=== PATIENT | female | born 1965 | race Caucasian/White ===

== ENCOUNTER 2019-01-26 08:02 | Inpatient (IN) ==
[2019-01-26] MEDS ORDERED: Acetaminophen 325 MG Tablet PO PRN (13:57)
[2019-01-26] MEDS: Enoxaparin Inj 30 MG/0.3 ML Syringe SQ SCH (14:31)
--- NOTE | 2019-01-26 16:52 | ECG ---
Date Performed: 01/26/2019 Time Performed: 14:21:12 PTAGE: 53 years EKG: Sinus rhythm WITH SINUS ARRHYTHMIA NORMAL ECG NO PREVIOUS TRACING DOCTOR: Sherwin Bartlett Interpretating Date/Time 01/26/2019 16:50:39
--- NOTE | 2019-01-26 17:56 | P.HP ---
History of Present Illness Service: CP hospitalist Primary Care Physician: UNKNOWN Chief Complaint: shortness of breath History of Present Illness: his is a 53-year-old female with a history of COPD and tobacco abuse who presents for dyspnea. She states that 5 days ago, she developed productive cough, nasal congestion. She has been taking Mucinex. She states that today, she developed increased shortness of breath. She states that her anterior chest feels tight with difficulty breathing. She denies lower extremity edema, calf pain, immobility, history of DVT or PE. She does continue to smoke cigarettes. She denies any current fever. No rash, headache, neck pain or stiffness. The tightness in the anterior aspect of her chest does not radiate to arm, neck, jaw. No associated diaphoresis or palpitations. Symptoms are moderate in severity. No alleviating factors. In er had chest xray showed rt apical pneumothorax chest tube placed. and transferred to [facility] – [place]. - Diagnosis (1) Pneumothorax on left (2) COPD (chronic obstructive pulmonary disease) Inpatient Certification: I certify that the inpatient services were ordered in accordance with Medicare regulations governing the order. This includes certification that hospital inpatient services are reasonable and necessary and in the case of services not specified as inpatient-only under 42 CFR 419.22(n), that they are appropriately provided as inpatient services in accordance to with the 2-midnight benchmark under 43 CFR 412.3(e) Estimated Total Length of Stay (Days): 3 Plans for Post Hospital Care: Not yet determined Review of Systems All other systems reviewed negative except as stated in HPI PMFSH - History History Provided By: Patient - Medical History Medical History: Medical History (Last Reviewed 01/26/19 @ 17:53 by Calvin Araujo MD) COPD (chronic obstructive pulmonary disease) Hx of hysterectomy Hyperlipidemia Hypothyroid Pneumothorax, left - Surgical History Surgical History: Surgical History (Last Reviewed 01/26/19 @ 17:53 by Calvin Araujo MD) H/O thyroidectomy - Tobacco History Second Hand Smoke Exposure: Yes Tobacco Use In Past 30 Days: Yes Smoking Status: Current every day smoker Tobacco Type: Cigarettes - Alcohol History How Often Do You Have a Drink Containing Alcohol: Never - Substance Use History Substance History: No History of Abuse Medications and Allergies Active Medications: Active Medications Acetaminophen (Tylenol) 650 mg PO Q4H PRN PRN Reason: Temp > 100.4 Hydrocodone Bitart/Acetaminophen ([place] 5/325) 1 tab PO Q4H PRN PRN Reason: pain 1-10, Last Admin: 01/26/19 14:31 Dose: 1 tab Al Hydroxide/Mg Hydroxide (Milk Of Dc Del Cid) 30 ml PO Q12H PRN PRN Reason: Mild Constipation Aspirin (Ecotrin) 81 mg PO DAILY [facility] Enoxaparin Sodium (Lovenox Inj) 30 mg SQ Q24H [facility] Last Admin: 01/26/19 14:31 Dose: 30 mg Hydromorphone HCl (Dilaudid Pf Inj) 0.5 mg IV.PUSH Q4H PRN PRN Reason: BREAKTHROUGH PAIN Levothyroxine Sodium (Synthroid) 88 mcg PO DAILY@0600 [facility] Ondansetron HCl (Zofran Inj) 4 mg IV.PUSH Q6H PRN PRN Reason: NAUSEA OR VOMITING Senna/Docusate Sodium (Gianna-Colace) 1 tab PO BID [facility] Sodium Chloride (Ns Flush) 2 ml IV.FLUSH BID [facility] Sodium Chloride (Ns Flush) 2 ml IV.FLUSH UNSCH PRN PRN Reason: FLUSH AFTER USING IV ACCESS Allergies Allergy/AdvReac Type Severity Reaction Status Date / Time No Known Allergies Allergy Verified 01/26/19 08:07 Home Medications Medication Instructions Recorded Confirmed Type aspirin 81 mg PO DAILY 01/26/19 01/26/19 History bupropion HCl [Wellbutrin XL] 01/26/19 History levothyroxine [Synthroid] 88 mcg PO DAILY 01/26/19 01/26/19 History rosuvastatin [Crestor] HS 01/26/19 History Exam Vital signs: Vital Signs 01/26/19 14:00 01/26/19 15:01 01/26/19 16:00 Pulse Rate 66 78 Respiratory Rate 18 18 Blood Pressure 171/74 H Pulse Oximetry 95 Intake & Output 01/25/19 01/26/19 01/26/19 18:59 06:59 18:59 Weight 49 kg Other: Date of Last Bowel Movement 01/26/19 Weight On Admission 49 kg Narrative: GENERAL: SKIN: Warm and dry. HEAD: Normocephalic. EYES: No scleral icterus. No injection or drainage. NECK: Supple, trachea midline. No JVD or lymphadenopathy. CARDIOVASCULAR: Regular rate and rhythm without murmurs, gallops, or rubs. RESPIRATORY: Breath sounds decreased rt side GASTROINTESTINAL: Abdomen soft, non-tender, nondistended. MUSCULOSKELETAL: No cyanosis, or edema. BACK: Nontender without obvious deformity. No CVA tenderness. Caprini VTE Risk Assessment Caprini VTE Risk Assessment: No/Low Risk (score <= 1) Caprini Risk Assessment Model: Point Value = 1 Point Value = 2 Point Value = 3 Point Value = 5 Age 41-60 Minor surgery BMI > 25 kg/m2 Swollen legs Varicose veins or History of unexplained or recurrent spontaneous Oral contraceptives or hormone replacement Sepsis (< 1 month) Serious lung disease, including pneumonia (< 1 month) Abnormal pulmonary function Acute myocardial infarction Congestive heart failure (< 1 month) History of inflammatory bowel disease Medical patient at bed rest Age 61-74 Arthroscopic surgery Major open surgery (> 45 min) Laparoscopic surgery (> 45 min) Malignancy Confined to bed (> 72 hours) Immobilizing plaster cast Central venous access Age >= 75 History of VTE Family history of VTE Factor V Leiden Prothrombin [id number] Lupus anticoagulant Anticardiolipin antibodies Elevated serum homocysteine Heparin-induced thrombocytopenia Other congenital or acquired thrombophilia Stroke (< 1 month) Elective arthroplasty Hip, pelvis, or leg fracture Acute spinal cord injury (< 1 month) Prophylaxis Regimen: Total Risk Factor Score Risk Level Prophylaxis Regimen 0-1 Low Early ambulation 2 Moderate Order ONE of the following: *Sequential Compression Device (SCD) *Heparin 5000 units SQ BID 3-4 Higher Order ONE of the following medications: *Heparin 5000 units SQ TID *Enoxaparin/Lovenox 40 mg SQ daily (WT < 150 kg, CrCl > 30 mL/min) *Enoxaparin/Lovenox 30 mg SQ daily (WT < 150 kg, CrCl > 10-29 mL/min) *Enoxaparin/Lovenox 30 mg SQ BID (WT < 150 kg, CrCl > 30 mL/min) AND/OR *Sequential Compression Device (SCD) 5 or more Highest Order ONE of the following medications: *Heparin 5000 units SQ TID (Preferred with Epidurals) *Enoxaparin/Lovenox 40 mg SQ daily (WT < 150 kg, CrCl > 30 mL/min) *Enoxaparin/Lovenox 30 mg SQ daily (WT < 150 kg, CrCl > 10-29 mL/min) *Enoxaparin/Lovenox 30 mg SQ BID (WT < 150 kg, CrCl > 30 mL/min) AND *Sequential Compression Device (SCD) Assessment and Plan - Assessment (1) Pneumothorax on left Code(s): J93.9 - Pneumothorax, unspecified Status: Acute Plan: consult pulmonary (2) COPD (chronic obstructive pulmonary disease) Code(s): J44.9 - Chronic obstructive pulmonary disease, unspecified Status: Acute Plan: stable at present - Plan further plan as case develops Code Status: full Discussed Condition With: patient
[2019-01-26] MEDS: Azithromycin Inj 500 MG in Sodium Chlor 0.9% Inj 250 ML IV.SIG SCH (19:35)
--- NOTE | 2019-01-26 19:58 | P.CONCC ---
History of Present Illness Primary Care Provider: UNKNOWN Chief Complaint: shortness of breath History of Present Illness: Please cancel the note it was started in an error PMFSH - History History Provided By: Patient - Medical History Medical History: Medical History (Last Reviewed 01/26/19 @ 17:53 by Calvin Araujo MD) COPD (chronic obstructive pulmonary disease) Hx of hysterectomy Hyperlipidemia Hypothyroid Pneumothorax, left - Surgical History Surgical History: Surgical History (Last Reviewed 01/26/19 @ 17:53 by Calvin Araujo MD) H/O thyroidectomy - Tobacco History Second Hand Smoke Exposure: Yes Tobacco Use In Past 30 Days: Yes Smoking Status: Current every day smoker Tobacco Type: Cigarettes - Alcohol History How Often Do You Have a Drink Containing Alcohol: Never - Substance Use History Substance History: No History of Abuse Medications and Allergies Active Medications: Active Medications Acetaminophen (Tylenol) 650 mg PO Q4H PRN PRN Reason: Temp > 100.4 Hydrocodone Bitart/Acetaminophen ([place] 5/325) 1 tab PO Q4H PRN PRN Reason: pain 1-10, Last Admin: 01/26/19 19:36 Dose: 1 tab Al Hydroxide/Mg Hydroxide (Milk Of Dc Del Cid) 30 ml PO Q12H PRN PRN Reason: Mild Constipation Albuterol (Duoneb Neb ([place])) 1 ampul NEB Q6HR NEB [facility] Aspirin (Ecotrin) 81 mg PO DAILY [facility] Budesonide/Formoterol Fumarate (Symbicort 160/4.5 Mcg Inh) 2 puff INH BID [facility] Enoxaparin Sodium (Lovenox Inj) 30 mg SQ Q24H [facility] Last Admin: 01/26/19 14:31 Dose: 30 mg Hydromorphone HCl (Dilaudid Pf Inj) 0.5 mg IV.PUSH Q4H PRN PRN Reason: BREAKTHROUGH PAIN Azithromycin 500 mg/ Sodium (Chloride) 250 mls @ 250 mls/hr IV.SIG Q24H [facility] Last Admin: 01/26/19 19:35 Dose: 250 mls/hr Levothyroxine Sodium (Synthroid) 88 mcg PO DAILY@0600 [facility] Ondansetron HCl (Zofran Inj) 4 mg IV.PUSH Q6H PRN PRN Reason: NAUSEA OR VOMITING Senna/Docusate Sodium (Gianna-Colace) 1 tab PO BID [facility] Sodium Chloride (Ns Flush) 2 ml IV.FLUSH BID [facility] Sodium Chloride (Ns Flush) 2 ml IV.FLUSH UNSCH PRN PRN Reason: FLUSH AFTER USING IV ACCESS Allergies Allergy/AdvReac Type Severity Reaction Status Date / Time No Known Allergies Allergy Verified 01/26/19 08:07 Home Medications Medication Instructions Recorded Confirmed Type aspirin 81 mg PO DAILY 01/26/19 01/26/19 History bupropion HCl [Wellbutrin XL] 01/26/19 History levothyroxine [Synthroid] 88 mcg PO DAILY 01/26/19 01/26/19 History rosuvastatin [Crestor] HS 01/26/19 History Physical Exam Vital signs: Vital Signs 01/26/19 14:00 01/26/19 15:01 01/26/19 16:00 Pulse Rate 66 78 Respiratory Rate 18 18 Blood Pressure 171/74 H Pulse Oximetry 95 01/26/19 18:00 Pulse Rate 66 Respiratory Rate Blood Pressure Pulse Oximetry Intake & Output 01/26/19 01/26/19 01/27/19 06:59 18:59 06:59 Intake Total 300 / 300 Balance 300 / 300 Weight 49 kg Intake: Oral 300 / 300 Other: # Voids 1 Date of Last Bowel Movement 01/26/19 Weight On Admission 49 kg
--- NOTE | 2019-01-26 20:10 | MB ---
cc: Rupesh Yap MD DATE: 01/26/2019 REASON FOR CONSULTATION: Pneumothorax with chest tube. HISTORY OF PRESENT ILLNESS: This is a 53-year-old white female with a past history of COPD and history of chronic smoking. She was admitted with history of spontaneous left pneumothorax. The patient had a cold, cough, wheezing for about 3-4 days, and developed progressive shortness of breath for which she came to the emergency room earlier. Following arrival in the ER, she was sent for a chest x-ray, which showed a left pneumothorax and she subsequently had to have a chest tube placed on the right side, and transferred to the intensive care unit. The patient also was placed on oxygen at 2 liters. She has some chest tightness and pain, and a repeat chest x-ray showed a tiny apical pneumothorax with a chest tube in place. PAST MEDICAL HISTORY: Hysterectomy, history for thyroidectomy, and history of hyperlipidemia. She has had hypothyroidism, and she has COPD with emphysema, a previous episode of pneumothorax about 7 years ago. HABITS: The patient smoked 1 pack per day for 25 years. No significant alcohol. ALLERGIES: NO DRUG ALLERGIES. MEDICATION LIST: 1. Levothyroxine 88 mcg daily. 2. Crestor 10 mg a day. 3. Bupropion 150 mg b.i.d. 4. Aspirin 1 daily. FAMILY HISTORY: Noncontributory. REVIEW OF SYSTEMS: The patient has had no recent weight loss. No headaches. She has chest pain. She has shortness of breath and wheezing and is orthopneic. Denies any abdominal pain. Denies urinary symptoms. No leg or calf muscle pains or joint pains. PHYSICAL EXAMINATION: GENERAL: This is averagely built, middle-aged, white female who is alert, pale, in no acute distress. VITAL SIGNS: Blood pressure 148/80, pulse is 75, respirations 20, temperature 98.1. HEENT: Head is normocephalic. Pupils are reactive and equal. Tongue is moist. Nasal mucosa edematous. Throat clear. NECK: Supple, no bruits or thyroid enlargement. CHEST: Equal movements with decreased breath sounds over the left upper chest. There is a chest tube in place on the left and a few wheezes scattered bilaterally. HEART: Sounds are regular, S1, S2. No murmur. ABDOMEN: Soft, benign. No mass. No organomegaly. EXTREMITIES: No lesions, no edema. Normal reflexes. There were no gross motor deficits. SKIN: No lesions observed. IMPRESSION: 1. Spontaneous left pneumothorax, resolving. 2. Chronic obstructive pulmonary disease with an acute exacerbation. 3. Nicotine dependency. 4. Hypothyroidism. PLAN: The patient will have a chest tube to wall suction at -20 cm. Nebulized DuoNeb solution added q.i.d. Followup chest or could be done in a.m. We will give her Zithromax 500 mg daily for exacerbation of COPD and a followup chest x-ray will be obtained in a.m. Symbicort 160/4.5 one puff twice daily was also added. If her chest x-ray has improved, we will clamp the chest tube in the a.m. and hopefully discontinue chest tube. Thank you, Dr. Coker, for this consultation. Rupesh Yap MD VJD/paula , 06:56 PM , 07:09 PM
[2019-01-26] MEDS: Senna/Docusate Sodium 8.6/50 MG Tablet PO SCH (22:03)
[2019-01-26] MEDS: HYDROmorphone PF Inj 0.5 MG/0.5 ML Syringe IV.PUSH PRN (22:04)
[2019-01-26] MEDS: Budesonide-Formoterol 160/4.5 MCG 6 GM Inhaler INH SCH (22:04)
[2019-01-27 06:07] LABS: Baso % (Auto) 0.2 % (0.0-2.0); Eos # (Auto) 0.1 th/mm3 (0.0-0.4); Hematocrit 36.8 % (35.0-46.0); Hemoglobin 12.5 gm/dL (11.6-15.3); Lymph # (Auto) 3.2 th/mm3 (1.0-4.8); Lymph % (Auto) 34.4 % (9.0-44.0); Mean Corpuscular HGB Conc 34.1 % (32.0-36.0); Mean Corpuscular Hemoglobin 31.4 pg (27.0-34.0); Mean Platelet Volume 8.2 fL (7.0-11.0); Mono # (Auto) 0.4 th/mm3 (0.0-0.9); Mono % (Auto) 4.3 % (0.0-8.0); Neut # (Auto) 5.7 th/mm3 (1.8-7.7); Neut % (Auto) 60.1 % (16.0-70.0); Platelet Count 124 th/mm3 (150-450); Red Cell Distribution Width 13.4 % (11.6-17.2); White Blood Count 9.4 th/mm3 (4.0-11.0)
[2019-01-27 06:22] LABS: Anion Gap 7 meq/L (5-15); Aspartate Aminotransferase 17 U/L (15-37); Blood Urea Nitrogen 9 mg/dL (7-18); Calcium 8.5 mg/dL (8.5-10.1); Carbon Dioxide 26.9 meq/L (21.0-32.0); Chloride 106 meq/L (98-107); Glomerular Filtration Rate Greater Than 89 mL/min (>89); Glucose,Random 72 mg/dL (74-106); Magnesium 2.1 mg/dL (1.5-2.5); Potassium 3.8 meq/L (3.5-5.1); Sodium 140 meq/L (136-145)
[2019-01-27 06:23] LABS: Alanine Aminotransferase 16 U/L (10-53); Phosphorus 2.8 mg/dL (2.5-4.9)
[2019-01-27 06:25] LABS: Alkaline Phosphatase 83 U/L (45-117); Total Protein 6.3 g/dL (6.4-8.2)
[2019-01-27] MEDS: Levothyroxine 88 MCG Tablet PO SCH (06:25)
--- NOTE | 2019-01-27 09:08 | XR ---
EXAM DATE: 01/27/2019 8:34 AM EST AGE/SEX: 53 years / Female INDICATIONS: Follow up pneumothorax. CLINICAL DATA: This is the patient's subsequent encounter. Patient reports that signs and symptoms h ave been present for 1 day and indicates a pain score of 4/10. MEDICAL/SURGICAL HISTORY: None. None. COMPARISON: [facility], CHEST 1V SINGLE AP, 01/26/2019. . FINDINGS: Small bore chest tube is in place on the left without pneumothorax. Moderate subcutaneous emphysema i s present. Right lung is clear. CONCLUSION: Left chest tube in good position without pneumothorax Electronically signed by: Emanuel Claros MD Board Certified Radiologist 01/27/2019 9:07 AM EST
[2019-01-27] MEDS: Senna/Docusate Sodium 8.6/50 MG Tablet PO SCH ×2 (09:20→22:23)
[2019-01-27] MEDS: Budesonide-Formoterol 160/4.5 MCG 6 GM Inhaler INH SCH ×2 (09:20→22:37)
--- NOTE | 2019-01-27 12:38 | P.PNIM ---
Subjective Interval history: No new complaints. Pt asking for chest tube to be removed. Will defer to Pulmonary Medicine. Physical Exam Vital signs: Last Vital Signs Temp 97.6 F 01/27/19 08:00 Pulse 83 01/27/19 09:00 Resp 24 01/27/19 09:00 BP 131/82 01/27/19 09:00 Pulse Ox 87 L 01/27/19 09:00 Narrative: GENERAL: This is a well-nourished, well-developed patient, in no apparent distress. CARDIOVASCULAR: Regular rate and rhythm without murmurs, gallops, or rubs. RESPIRATORY: wheezing throughout GASTROINTESTINAL: Abdomen soft, non-tender, nondistended. Normal active bowel sounds MUSCULOSKELETAL: Extremities without clubbing, cyanosis, or edema. NEURO: Alert & Oriented x4 to person, place, time, situation. Moves all ext x4 Results Labs CBC & Chem 7: 01/27/19 05:30 01/27/19 05:30 Assessment and Plan Assessment (1) COPD (chronic obstructive pulmonary disease): Code(s): J44.9 - Chronic obstructive pulmonary disease, unspecified Status: Acute (2) Spontaneous pneumothorax: Code(s): J93.83 - Other pneumothorax Status: Acute Plan 1) Spontaneous Pneumothorax - per pt, prior spontaneous pneumothorax and talc pleurodesis - chest tube. Management per Pulmonary Medicine - norc/diluadid prn 2) COPD, exacerbation - duonebs - IV solumedrol - symbicort - azithromycin Progress Note: Quality VTE Deep Vein Thrombosis/Pulmonary Embolism Present on Admission: No _ (1) COPD (chronic obstructive pulmonary disease) Qualifiers: COPD type: Chronic bronchitis type: Emphysema type:
[2019-01-27] MEDS ORDERED: MethylPREDNISolone Sod Succinate Inj 40 MG/ML Vial IV.PUSH SCH ×2 (13:00→21:00)
[2019-01-27] MEDS: Enoxaparin Inj 30 MG/0.3 ML Syringe SQ SCH (15:02)
[2019-01-27] MEDS: Azithromycin Inj 500 MG in Sodium Chlor 0.9% Inj 250 ML IV.SIG SCH (18:09)
--- NOTE | 2019-01-27 18:22 | P.PN ---
Subjective Interval history: Complains of severe pain along chest tube site. On O2 at 2 L with saturation at 96. Chest tube shows no air leak. Today the chest x-ray shows no pneumothorax. Physical Exam Vital signs: Vital Signs 01/26/19 18:33 01/26/19 19:00 01/26/19 19:01 Temperature Pulse Rate 68 66 62 Respiratory Rate 24 28 H 29 H Blood Pressure 139/66 145/68 H Pulse Oximetry 94 L 94 L 94 L 01/26/19 20:00 01/26/19 21:00 01/26/19 21:17 Temperature 98.6 F Pulse Rate 72 64 56 L Respiratory Rate 21 26 H 18 Blood Pressure 145/71 H 137/72 Pulse Oximetry 96 99 01/26/19 22:00 01/26/19 22:01 01/26/19 23:00 Temperature Pulse Rate 56 L 57 L 55 L Respiratory Rate 28 H 23 18 Blood Pressure 127/59 L Pulse Oximetry 97 97 97 01/26/19 23:01 01/27/19 00:00 01/27/19 00:01 Temperature 97.8 F Pulse Rate 56 L 50 L 50 L Respiratory Rate 19 16 15 Blood Pressure 131/62 119/58 L Pulse Oximetry 96 97 97 01/27/19 01:00 01/27/19 02:00 01/27/19 02:19 Temperature Pulse Rate 53 L 49 L 49 L Respiratory Rate 25 H 30 H 22 Blood Pressure 126/60 142/65 H 128/61 Pulse Oximetry 97 97 97 01/27/19 03:00 01/27/19 03:01 01/27/19 04:00 Temperature Pulse Rate 46 L 46 L 47 L Respiratory Rate 13 13 12 Blood Pressure 99/53 L 110/57 L Pulse Oximetry 97 98 98 01/27/19 04:26 01/27/19 05:00 01/27/19 06:00 Temperature Pulse Rate 54 L 49 L 49 L Respiratory Rate 20 32 H 25 H Blood Pressure 123/61 131/61 Pulse Oximetry 96 97 01/27/19 07:00 01/27/19 07:01 01/27/19 08:00 Temperature 97.6 F Pulse Rate 49 L 49 L 54 L Respiratory Rate 22 21 24 Blood Pressure 124/60 124/56 L Pulse Oximetry 96 96 99 01/27/19 08:49 01/27/19 08:50 01/27/19 09:00 Temperature Pulse Rate 47 L 83 Respiratory Rate 18 24 Blood Pressure 131/82 Pulse Oximetry 93 L 87 L 01/27/19 09:35 01/27/19 10:00 01/27/19 11:00 Temperature Pulse Rate 50 L 56 L 57 L Respiratory Rate 27 H 29 H 29 H Blood Pressure 144/65 H 129/61 Pulse Oximetry 93 L 90 L 93 L 01/27/19 11:01 01/27/19 12:00 01/27/19 12:01 Temperature Pulse Rate 51 L 61 63 Respiratory Rate 23 22 25 H Blood Pressure 133/60 115/57 L Pulse Oximetry 93 L 94 L 94 L 01/27/19 12:31 01/27/19 13:00 01/27/19 14:00 Temperature Pulse Rate 68 65 Respiratory Rate 16 27 H Blood Pressure 121/61 Pulse Oximetry 93 L 01/27/19 15:11 01/27/19 15:13 01/27/19 16:00 Temperature 97.9 F Pulse Rate 58 L 60 Respiratory Rate 18 16 Blood Pressure 114/54 L Pulse Oximetry 94 L 96 Intake & Output 01/26/19 01/27/19 01/27/19 18:59 06:59 18:59 Intake Total 300 / 300 250 / 250 Output Total 10 Balance 300 / 300 -10 / -10 250 / 250 Weight 49 kg 49 kg Intake: IV 250 / 250 Azithromycin Inj 500 MG In NS 250 / 250 Inj 250 ML @ 250 mls/hr IV.SIG Q24H [facility] Rx#:[id number] Oral 300 / 300 Output: Chest Tube Drainage #1 Left Upper Mid-Axillary Chest Other: # Voids 1 3 # Incontinent Voids 0 Date of Last Bowel Movement 01/26/19 01/26/19 01/26/19 # Bowel Movements 0 Weight On Admission 49 kg Narrative: GENERAL: Middle-aged averagely built white female alert and anxious. SKIN: Warm and dry. HEAD: Normocephalic. EYES: No scleral icterus. No injection or drainage. NECK: Supple, trachea midline. No JVD or lymphadenopathy. CARDIOVASCULAR: Regular rate and rhythm without murmurs, gallops, or rubs. RESPIRATORY: Breath sounds decreased at the periphery GASTROINTESTINAL: Abdomen soft, non-tender, nondistended. MUSCULOSKELETAL: No cyanosis, or edema. BACK: Nontender without obvious deformity. No CVA tenderness. Results - Labs CBC & Chem 7: 01/27/19 05:30 01/27/19 05:30 Laboratory Results - last 24 hr 01/26/19 01/27/19 01/27/19 13:00 05:30 05:30 WBC 9.4 RBC 4.00 Hgb 12.5 D Hct 36.8 MCV 92.0 MCH 31.4 MCHC 34.1 RDW 13.4 Plt Count 124 L D MPV 8.2 Neut % (Auto) 60.1 Lymph % (Auto) 34.4 [place] % (Auto) 4.3 Eos % (Auto) 1.0 Baso % (Auto) 0.2 Neut # (Auto) 5.7 Lymph # (Auto) 3.2 [place] # (Auto) 0.4 Eos # (Auto) 0.1 Baso # (Auto) 0.0 WBC Differential . Differential Comment Auto diff final Sodium 140 Potassium 3.8 Chloride 106 Carbon Dioxide 26.9 Anion Gap 7 BUN 9 Creatinine 0.63 Estimated GFR Greater than 89 Random Glucose 72 L Calcium 8.5 Phosphorus 2.8 Magnesium 2.1 Total Bilirubin 0.3 AST 17 ALT 16 Alkaline Phosphatase 83 Total Protein 6.3 L D Albumin 3.0 L D Nasal Screen MRSA (PCR) Not detected - Imaging Impressions Chest X-Ray 01/27/19 08:00 CONCLUSION: Left chest tube in good position without pneumothorax Assessment and Plan - Assessment (1) Nicotine dependence Code(s): F17.200 - Nicotine dependence, unspecified, uncomplicated Status: Acute (2) Spontaneous pneumothorax Code(s): J93.83 - Other pneumothorax Status: Acute (3) COPD (chronic obstructive pulmonary disease) Code(s): J44.9 - Chronic obstructive pulmonary disease, unspecified Status: Acute - Plan #1 clamp chest tube in a.m. and repeat chest x-ray 2. DuoNeb nebs 4 times daily. 3. Continue Zithromax 500 mg daily 4. Solu-Medrol 60 mg IV q. 12-hour 5. Brio Ellipta 100 x 25 mcg 1 puff daily 6. CBC BMP in a.m. 7. [place] 5/3 25 mg every 6 hours as needed for pain
[2019-01-27] MEDS: HYDROmorphone PF Inj 0.5 MG/0.5 ML Syringe IV.PUSH PRN (19:55)
[2019-01-27] MEDS: MethylPREDNISolone Sod Succinate Inj 40 MG/ML Vial IV.PUSH SCH (22:23)
[2019-01-28] MEDS: Levothyroxine 88 MCG Tablet PO SCH (06:02)
[2019-01-28] MEDS: MethylPREDNISolone Sod Succinate Inj 40 MG/ML Vial IV.PUSH SCH (08:08)
[2019-01-28] MEDS: Budesonide-Formoterol 160/4.5 MCG 6 GM Inhaler INH SCH ×2 (08:08→20:27)
[2019-01-28] MEDS: Senna/Docusate Sodium 8.6/50 MG Tablet PO SCH ×2 (08:09→20:24)
--- NOTE | 2019-01-28 08:24 | XR ---
EXAM DATE: 01/28/2019 8:17 AM EST AGE/SEX: 53 years / Female INDICATIONS: Left sided pneumothorax. CLINICAL DATA: This is the patient's subsequent encounter. Patient reports that signs and symptoms h ave been present for 2 weeks and indicates a pain score of 0/10. MEDICAL/SURGICAL HISTORY: None. None. COMPARISON: [facility] [place], CHEST 1V SINGLE AP, 01/27/2019. . FINDINGS: AP portable upright view of the chest demonstrates a stable appearance of a left apically directed ch est tube with moderate subcutaneous air identified within the left soft tissues. No visible pneumotho rax present. The lungs are well-inflated and clear. Heart size is normal. Osseous structures appear i ntact. CONCLUSION: Left-sided chest tube without visible left-sided pneumothorax. Electronically signed by: Malinda Little MD Board Certified Radiologist 01/28/2019 8:23 AM EST
--- NOTE | 2019-01-28 09:45 | P.PNIM ---
Subjective Interval history: Patient c/o pain left scapular area feels breathing is improving Also c/o runny nose and sinus congestion Physical Exam Vital signs: Last Vital Signs Temp 97.4 F L 01/28/19 08:00 Pulse 65 01/28/19 09:17 Resp 16 01/28/19 09:17 BP 145/66 H 01/28/19 08:00 Pulse Ox 97 01/28/19 09:17 Narrative: GENERAL: This is a well-nourished, well-developed patient, in no apparent distress. CARDIOVASCULAR: Regular rate and rhythm RESPIRATORY: diminished throughout. left chest tube in place currently clamped GASTROINTESTINAL: Abdomen soft, non-tender, nondistended. Normal active bowel sounds MUSCULOSKELETAL: Extremities without clubbing, cyanosis, or edema. NEURO: Alert & Oriented. Moves all ext x4 Results Labs CBC & Chem 7: 01/27/19 05:30 01/27/19 05:30 Assessment and Plan Assessment (1) Nicotine dependence: Code(s): F17.200 - Nicotine dependence, unspecified, uncomplicated Status: Acute (2) Spontaneous pneumothorax: Code(s): J93.83 - Other pneumothorax Status: Acute (3) COPD (chronic obstructive pulmonary disease): Code(s): J44.9 - Chronic obstructive pulmonary disease, unspecified Status: Acute Plan 1) Spontaneous Pneumothorax - per pt, prior spontaneous pneumothorax and talc pleurodesis - chest tube. Management per Pulmonary Medicine. CT tube currently clamped - Chest X-Ray 01/28/19 Left-sided chest tube without visible left-sided pneumothorax. - norc/diluadid prn 2) COPD, exacerbation - duonebs - IV solumedrol - symbicort - azithromycin 3) nasal congestion - Claritin D added DVT prophylaxis with SCDs Attending Attestation The exam, history, and the medical decision-making described in the above note were completed with the assistance of the mid-level provider. I reviewed and agree with the findings presented. I attest that I had a [id number] encounter with the patient on the same day, and personally performed and documented my assessment and findings in the medical record. Patient examined. Assessment and plan formulated with Iliana Lucero PA-C. I agree with the above. Progress Note: Quality VTE Deep Vein Thrombosis/Pulmonary Embolism Present on Admission: No _ (1) Nicotine dependence Qualifiers: Nicotine product type: Substance use status: (2) COPD (chronic obstructive pulmonary disease) Qualifiers: COPD type: Chronic bronchitis type: Emphysema type:
[2019-01-28] MEDS: Loratadine/Pseudoephedrine 12HR Tablet PO SCH ×2 (10:09→20:24)
[2019-01-28] MEDS: Enoxaparin Inj 30 MG/0.3 ML Syringe SQ SCH (14:17)
--- NOTE | 2019-01-28 14:25 | P.PN ---
Subjective Interval history: She is feeling better and sitting up in a chair. Chest tube is in and was clamped for 3 hours. Chest x-ray today shows no pneumothorax with chest tube clamped. Physical Exam Vital signs: Vital Signs 01/27/19 15:11 01/27/19 15:13 01/27/19 16:00 Temperature 97.9 F Pulse Rate 58 L 60 Respiratory Rate 18 16 Blood Pressure 114/54 L Pulse Oximetry 94 L 96 01/27/19 18:00 01/27/19 20:00 01/27/19 20:26 Temperature 98.5 F Pulse Rate 60 60 58 L Respiratory Rate 16 16 Blood Pressure 100/57 L Pulse Oximetry 97 96 01/28/19 00:00 01/28/19 03:32 01/28/19 04:00 Temperature 98.0 F 98.3 F Pulse Rate 65 55 L 65 Respiratory Rate 16 20 18 Blood Pressure 117/55 L 129/59 L Pulse Oximetry 97 97 01/28/19 08:00 01/28/19 09:17 01/28/19 12:00 Temperature 97.4 F L 97.5 F L Pulse Rate 55 L 65 71 Respiratory Rate 20 16 18 Blood Pressure 145/66 H 116/61 Pulse Oximetry 96 97 95 Intake & Output 01/27/19 01/28/19 01/28/19 18:59 06:59 18:59 Intake Total 250 / 250 480 / 480 Output Total 0 / 0 30 / 30 Balance 250 / 250 450 / 450 Weight 52 kg Intake: IV 250 / 250 Azithromycin Inj 500 MG In NS 250 / 250 Inj 250 ML @ 250 mls/hr IV.SIG Q24H GINA Rx#:[id number] Oral 480 / 480 Output: Chest Tube Drainage 0 / 0 30 / 30 #1 Left Upper Mid-Axillary 0 / 0 30 / 30 Chest Other: # Voids 2 Date of Last Bowel Movement 01/26/19 01/26/19 Narrative: GENERAL: Middle-aged averagely built white female alert and anxious. SKIN: Warm and dry. HEAD: Normocephalic. EYES: No scleral icterus. No injection or drainage. NECK: Supple, trachea midline. No JVD or lymphadenopathy. CARDIOVASCULAR: Regular rate and rhythm without murmurs, gallops, or rubs. RESPIRATORY: Breath sounds decreased at the periphery on the left. Occasional wheeze scattered GASTROINTESTINAL: Abdomen soft, non-tender, nondistended. MUSCULOSKELETAL: No cyanosis, or edema. BACK: Nontender without obvious deformity. Neuro: No gross deficit Results - Labs CBC & Chem 7: 01/27/19 05:30 01/27/19 05:30 - Imaging Impressions Chest X-Ray 01/28/19 00:00 CONCLUSION: Left-sided chest tube without visible left-sided pneumothorax. Assessment and Plan - Assessment (1) Nicotine dependence Code(s): F17.200 - Nicotine dependence, unspecified, uncomplicated Status: Acute (2) Spontaneous pneumothorax Code(s): J93.83 - Other pneumothorax Status: Acute (3) COPD (chronic obstructive pulmonary disease) Code(s): J44.9 - Chronic obstructive pulmonary disease, unspecified Status: Acute - Plan #1 clamp chest tube till a.m. and repeat chest x-ray in a.m. 2. DuoNeb nebs 4 times daily. 3. Continue Zithromax 500 mg daily 4. DC Solu-Medrol 5. Brio Ellipta 100 x 25 mcg 1 puff daily 6. Add prednisone 20 mg twice daily 7. Wheeler 5/3 25 mg every 6 hours as needed for pain
[2019-01-28] MEDS: HYDROmorphone PF Inj 0.5 MG/0.5 ML Syringe IV.PUSH PRN (15:39)
--- NOTE | 2019-01-28 17:36 | XR ---
EXAM DATE: 01/28/2019 5:33 PM EST AGE/SEX: 53 years / Female INDICATIONS: Shortness of breath. CLINICAL DATA: This is the patient's initial encounter. Patient reports that signs and symptoms have been present for 3 days and indicates a pain score of 0/10. MEDICAL/SURGICAL HISTORY: None. None. COMPARISON: [facility] – [place] CHEST 1V SINGLE AP, 01/28/2019. . FINDINGS: Stable left apical chest tube with out significant pneumothorax. Mild linear parenchymal opacities in the left lung base similar to previous exam. The cardiomediastinal contours are unremarkable. Stable mild chest wall emphysema on the left. Osseous structures are intact. CONCLUSION: 1. Stable left-sided chest tube without pneumothorax. 2. Stable mild chest wall emphysema. 3. Stable minimal atelectasis at the left lung base. Electronically signed by: Gideon Quick MD Board Certified Radiologist 01/28/2019 5:35 PM EST
[2019-01-28] MEDS: Azithromycin Inj 500 MG in Sodium Chlor 0.9% Inj 250 ML IV.SIG SCH (18:04)
[2019-01-28] MEDS: predniSONE 20 MG Tablet PO SCH (20:24)
[2019-01-29] MEDS: HYDROmorphone PF Inj 0.5 MG/0.5 ML Syringe IV.PUSH PRN (00:54)
[2019-01-29] MEDS: Levothyroxine 88 MCG Tablet PO SCH (06:04)
[2019-01-29] MEDS: Budesonide-Formoterol 160/4.5 MCG 6 GM Inhaler INH SCH ×2 (09:10→23:24)
[2019-01-29] MEDS: Senna/Docusate Sodium 8.6/50 MG Tablet PO SCH ×2 (09:11→23:21)
[2019-01-29] MEDS: predniSONE 20 MG Tablet PO SCH ×2 (09:11→23:21)
[2019-01-29] MEDS: Loratadine/Pseudoephedrine 12HR Tablet PO SCH ×2 (09:11→23:20)
--- NOTE | 2019-01-29 10:14 | P.PNIM ---
Subjective Interval history: Patient sitting up in bed with CT clamped, denies shortness of breath Physical Exam Vital signs: Last Vital Signs Temp 97.2 F L 01/29/19 08:00 Pulse 62 01/29/19 08:43 Resp 16 01/29/19 08:43 BP 124/58 L 01/29/19 08:00 Pulse Ox 98 01/29/19 08:43 Narrative: GENERAL: This is a well-nourished, well-developed patient, in no apparent distress. CARDIOVASCULAR: Regular rate and rhythm RESPIRATORY: diminished throughout. left chest tube in place currently clamped GASTROINTESTINAL: Abdomen soft, non-tender, nondistended. Normal active bowel sounds MUSCULOSKELETAL: Extremities without clubbing, cyanosis, or edema. NEURO: Alert & Oriented. Moves all ext x4 Results Labs CBC & Chem 7: 01/27/19 05:30 01/27/19 05:30 Assessment and Plan Assessment (1) Nicotine dependence: Code(s): F17.200 - Nicotine dependence, unspecified, uncomplicated Status: Acute (2) Spontaneous pneumothorax: Code(s): J93.83 - Other pneumothorax Status: Acute (3) COPD (chronic obstructive pulmonary disease): Code(s): J44.9 - Chronic obstructive pulmonary disease, unspecified Status: Acute Plan 1) Spontaneous Pneumothorax - per pt, prior spontaneous pneumothorax and talc pleurodesis - chest tube. Management per Pulmonary Medicine. CT tube currently clamped - Chest X-Ray 01/28/19 Left-sided chest tube without visible left-sided pneumothorax. - norc/diluadid prn 2) COPD, exacerbation - duonebs - IV solumedrol - symbicort - azithromycin 3) nasal congestion - Claritin D added DVT prophylaxis with SCDs Attending Attestation The exam, history, and the medical decision-making described in the above note were completed with the assistance of the mid-level provider. I reviewed and agree with the findings presented. I attest that I had a [id number] encounter with the patient on the same day, and personally performed and documented my assessment and findings in the medical record. Patient examined. Assessment and plan formulated with Iliana Lucero PA-C. I agree with the above. Progress Note: Quality VTE Deep Vein Thrombosis/Pulmonary Embolism Present on Admission: No _ (1) Nicotine dependence Qualifiers: Nicotine product type: Substance use status: (2) COPD (chronic obstructive pulmonary disease) Qualifiers: COPD type: Chronic bronchitis type: Emphysema type:
--- NOTE | 2019-01-29 12:17 | P.PN ---
Subjective Interval history: She feels comfortable off oxygen. Chest x-ray after the tube clamped showed no pneumothorax. O2 sats 95. Physical Exam Vital signs: Vital Signs 01/28/19 16:00 01/28/19 16:39 01/28/19 20:00 Temperature 97.6 F 97.9 F Pulse Rate 62 71 92 H Respiratory Rate 19 18 18 Blood Pressure 125/61 129/69 Pulse Oximetry 97 95 01/28/19 20:08 01/29/19 00:00 01/29/19 04:00 Temperature 97.8 F Pulse Rate 73 64 68 Respiratory Rate 16 17 18 Blood Pressure 126/60 Pulse Oximetry 95 97 01/29/19 08:00 01/29/19 08:43 Temperature 97.2 F L Pulse Rate 76 62 Respiratory Rate 18 16 Blood Pressure 124/58 L Pulse Oximetry 90 L 98 Intake & Output 01/28/19 01/29/19 01/29/19 18:59 06:59 18:59 Intake Total 640 / 640 970 / 970 Output Total 0 / 0 Balance 640 / 640 970 / 970 Weight 51.1 kg Intake: IV 250 / 250 Azithromycin Inj 500 MG In NS 250 / 250 Inj 250 ML @ 250 mls/hr IV.SIG Q24H GINA Rx#:[id number] Oral 640 / 640 720 / 720 Output: Chest Tube Drainage 0 / 0 #1 Left Upper Mid-Axillary 0 / 0 Chest Other: # Voids 3 3 # Bowel Movements 0 Narrative: GENERAL: Middle-aged averagely built white female alert and anxious. SKIN: Warm and dry. HEAD: Normocephalic. EYES: No scleral icterus. No injection or drainage. NECK: Supple, trachea midline. No JVD or lymphadenopathy. CARDIOVASCULAR: Regular rate and rhythm without murmurs, gallops, or rubs. RESPIRATORY: Breath sounds are good in both lung pacheco. Occasional wheeze scattered GASTROINTESTINAL: Abdomen soft, non-tender, nondistended. MUSCULOSKELETAL: No cyanosis, or edema. BACK: Nontender without obvious deformity. Neuro: No gross deficit Results - Labs CBC & Chem 7: 01/27/19 05:30 01/27/19 05:30 - Imaging Impressions Chest X-Ray 01/28/19 00:00 CONCLUSION: 1. Stable left-sided chest tube without pneumothorax. 2. Stable mild chest wall emphysema. 3. Stable minimal atelectasis at the left lung base. Assessment and Plan - Assessment (1) Nicotine dependence Code(s): F17.200 - Nicotine dependence, unspecified, uncomplicated Status: Acute (2) Spontaneous pneumothorax Code(s): J93.83 - Other pneumothorax Status: Acute (3) COPD (chronic obstructive pulmonary disease) Code(s): J44.9 - Chronic obstructive pulmonary disease, unspecified Status: Acute - Plan #1 We will DC chest tube 2. DuoNeb nebs 4 times daily. 3. Continue Zithromax 500 mg daily 4. Repeat chest x-ray in 4-hour 5. Brio Ellipta 100 x 25 mcg 1 puff daily 6. Taper prednisone 30 mg daily 7. Home in a.m. if stable
--- NOTE | 2019-01-29 12:43 | XR ---
EXAM DATE: Shortness of breath AGE/SEX: 53 years / Female INDICATIONS: Short of breath. CLINICAL DATA: This is the patient's subsequent encounter. Patient reports that signs and symptoms h ave been present for 3 days and indicates a pain score of 3/10. MEDICAL/SURGICAL HISTORY: None. None. COMPARISON: [facility] – [place] 1V SINGLE AP, 01/28/2019. . FINDINGS: Left apically directed chest tube. Minimal left-sided soft tissue emphysema. No visualized pneumothor ax. The lungs are well-inflated and clear. Heart size is normal. Osseous structures appear intact. CONCLUSION: The lungs appear clear. No visualized pneumothorax. Left apically directed chest tube with resolving adjacent subcutaneous emphysema.. Electronically signed by: Malinda Little MD Board Certified Radiologist 01/29/2019 12:41 PM EST
[2019-01-29] MEDS: Enoxaparin Inj 30 MG/0.3 ML Syringe SQ SCH (14:41)
[2019-01-29] MEDS: Azithromycin Inj 500 MG in Sodium Chlor 0.9% Inj 250 ML IV.SIG SCH (18:35)
--- NOTE | 2019-01-29 21:03 | XR ---
EXAM DATE: 01/29/2019 8:53 PM EST AGE/SEX: 53 years / Female INDICATIONS: Evaluate for pneumothorax post chest tube removal. CLINICAL DATA: This is the patient's initial encounter. Patient reports that signs and symptoms have been present for 1 day and indicates a pain score of 0/10. MEDICAL/SURGICAL HISTORY: None. None. COMPARISON: [facility] – [place]ST 1V SINGLE AP, 01/29/2019. . FINDINGS: Small calcified granulomas are noted in the lungs. Lungs are hypoaerated but otherwise clear. There is no evidence of acute airspace disease or signific ant congestion. Left lung remains well expanded following chest tube removal. Heart and mediastinal structures are stable. CONCLUSION: Hypoaerated lungs. No evidence of pneumothorax status post left chest tube removal. No acute process. Electronically signed by: René Elena MD Board Certified Radiologist 01/29/2019 9:01 PM EST
[2019-01-29] MEDS: buPROPion 150 MG 12 HR Tablet PO SCH (23:21)
[2019-01-30 00:49] VITALS: TEMP 97.6
[2019-01-30] MEDS: Levothyroxine 88 MCG Tablet PO SCH (05:52)
--- NOTE | 2019-01-30 07:41 | P.DS ---
DS: Providers Date of admission: 01/26/19 12:52 Primary care physician: UNKNOWN Consults: 01/26/19 14:09 Consult to Pulmonology Routine Consulting Provider: Micah Dodd V Reason for Consultation: manage chest tube. Notified:: Office Spoke with:: Romi Date Notified:: 01/26/19 Time Notified:: 14:29 Ordering Provider: MARCO A Brief History from admission: his is a 53-year-old female with a history of COPD and tobacco abuse who presents for dyspnea. She states that 5 days ago, she developed productive cough, nasal congestion. She has been taking Mucinex. She states that today, she developed increased shortness of breath. She states that her anterior chest feels tight with difficulty breathing. She denies lower extremity edema, calf pain, immobility, history of DVT or PE. She does continue to smoke cigarettes. She denies any current fever. No rash, headache, neck pain or stiffness. The tightness in the anterior aspect of her chest does not radiate to arm, neck, jaw. No associated diaphoresis or palpitations. Symptoms are moderate in severity. No alleviating factors. In er had chest xray showed rt apical pneumothorax chest tube placed. and transferred to [facility] [place]. DS: Diagnosis Discharge Diagnosis (1) Nicotine dependence: Status: Acute (2) Spontaneous pneumothorax: Status: Acute (3) COPD (chronic obstructive pulmonary disease): Status: Acute DS: Summary 1) Spontaneous Pneumothorax - per pt, prior spontaneous pneumothorax and talc pleurodesis - chest tube. Management per Pulmonary Medicine. CT tube currently clamped - Chest X-Ray 01/28/19 Left-sided chest tube without visible left-sided pneumothorax. - chest tube removed 01/29/19 - Chest X-Ray 01/29/19 The lungs appear clear. No visualized pneumothorax. Left apically directed chest tube with resolving adjacent subcutaneous emphysema.. - Chest X-Ray 01/29/19 Hypoaerated lungs. No evidence of pneumothorax status post left chest tube removal. No acute process. - Chest X-Ray 01/30/19 1. Scattered tiny granulomas bilaterally. 2. No acute focal pulmonary or pulmonary vascular congestion. Patient to follow up with PCP and Pulmonology after DC - norc/diluadid prn 2) COPD, exacerbation - duonebs - IV solumedrol - symbicort - azithromycin 3) nasal congestion - Claritin D added DVT prophylaxis with SCDs Time Spent with Patient Total time spent providing and/or coordinating discharge services: Quality: VTE Deep Vein Thrombosis/Pulmonary Embolism Present on Admission: No Exam Narrative Exam Narrative: GENERAL: This is a well-nourished, well-developed patient, in no apparent distress. CARDIOVASCULAR: Regular rate and rhythm RESPIRATORY: diminished throughout. GASTROINTESTINAL: Abdomen soft, non-tender, nondistended. Normal active bowel sounds MUSCULOSKELETAL: Extremities without clubbing, cyanosis, or edema. NEURO: Alert & Oriented. Moves all ext x4 Results Labs on day of discharge: Labs from last 24 hours 01/29/19 12:31 Beta HCG, Qual 5.5 H Impressions ITS Impressions Chest X-Ray 01/29/19 20:00 CONCLUSION: Hypoaerated lungs. No evidence of pneumothorax status post left chest tube removal. No acute process. Discharge Plan Discharge Disposition Patient Disposition: Discharge Home Discharge Condition Condition: Stable Discharge Order Discharge Orders: Discharge Order (Routine); Ordered 01/30/19 Ordered By: Iliana Lucero Discharge Details Anticipated Discharge Date: 01/30/19 Physicians Team ED Provider: Birgit Cr Primary Care Provider: UNKNOWN, Attending Provider: Osorio Coker Other Providers: Micah Dodd V Rxs /Orders / Referrals /Forms Prescriptions: New prednisone 20 mg tablet See Label Instructions .ROUTE .COMPLEX Qty: 7 RF: 0 azithromycin 250 mg tablet 250 mg PO DAILY Qty: 1 RF: 0 fluticasone-salmeterol [AirDuo RespiClick] 113-14 mcg/actuation aerosol powdr breath activated 1 inh INHALATION Q12H Qty: 1 RF: 0 Continue levothyroxine [Synthroid] 88 mcg Tablet 88 mcg PO DAILY RF: 0 rosuvastatin [Crestor] 5 mg Tablet 5 mg PO HS RF: 0 aspirin 81 mg Tablet,Delayed Release (Dr/Ec) 81 mg PO DAILY RF: 0 benzonatate 200 mg Capsule 200 mg PO TID PRN (Reason: Cough) RF: 0 bupropion HCl [Wellbutrin SR] 150 mg Tablet Sustained-Release 12 Hr 150 mg PO BID RF: 0 Referrals: Micah Dodd MD [Physician] - See Instructions (follow up in 1 -2 weeks) UNKNOWN, [Primary Care Provider] - See Instructions (Follow up with PCP in 1 week) Stand Alone Forms: Work Release/Restrictions Status ED Status: Admitted Patient
--- NOTE | 2019-01-30 10:04 | XR ---
EXAM DATE: 01/30/2019 10:00 AM EST AGE/SEX: 53 years / Female INDICATIONS: . Evaluate for pneumothorax. CLINICAL DATA: This is the patient's subsequent encounter. Patient reports that signs and symptoms h ave been present for 1 day and indicates a pain score of 0/10. MEDICAL/SURGICAL HISTORY: . Previous atelectasis of left lung. None. COMPARISON: [facility] – [place] CHEST 1V SINGLE AP, 01/29/2019. . FINDINGS: Scattered tiny granulomas are noted within both lungs. There is no acute focal pulmonary uptake. No p ulmonary edema is noted. The heart is normal. CONCLUSION: 1. Scattered tiny granulomas bilaterally. 2. No acute focal pulmonary or pulmonary vascular congestion. Electronically signed by: Aramis Poon MD Board Certified Radiologist 01/30/2019 10:02 AM EST
[2019-01-30 10:07] VITALS: RESP 16
[2019-01-30] MEDS: Senna/Docusate Sodium 8.6/50 MG Tablet PO SCH (10:50)
[2019-01-30] MEDS: predniSONE 20 MG Tablet PO SCH (10:51)
[2019-01-30] MEDS: buPROPion 150 MG 12 HR Tablet PO SCH (10:51)
[2019-01-30] MEDS: Loratadine/Pseudoephedrine 12HR Tablet PO SCH (10:52)
[2019-01-30] MEDS: Budesonide-Formoterol 160/4.5 MCG 6 GM Inhaler INH SCH (10:52)
[2019-01-30 12:11] VITALS: BP 118/62; PULSE 69; O2SAT 97
== END 2019-01-30 16:38 | disposition home or self-care (01) | DRG 200 ==
LOC: NEDDLT 08:02 → HIMC 12:52 → N07 01-27 15:57
PROVIDERS: ADMIT Hospitalist; ATTEND Hospitalist
DX: J93.83 Other pneumothorax; E89.0 Postprocedural hypothyroidism; Z79.82 Long term (current) use of aspirin; F17.200 Nicotine dependence, unspecified, uncomplicated; E78.5 Hyperlipidemia, unspecified; Z90.710 Acquired absence of both cervix and uterus; J44.1 Chronic obstructive pulmonary disease with (acute) exacerbation; Z79.890 Hormone replacement therapy
CPT/HCPCS: 32020; 32551; 71010; 71020; 71045; 71046; 80053; 83520; 83605; 83735; 83880; 84100; 84484; 84703; 85025; 85610; 87040; 87275; 87276; 87641; 87804; 90761; 90774; 90775; 90784; 93005; 94150; 94640; 94664; 94665; 96361; 96374; 96375; 97162; 99291; C8952; J0456; J1170; J1650; J2270; J2405; J2543; J2920; J3010; J3370; J7030; J7040; J7050; J7506; J7512